=== PATIENT | female | born 1985 | race Caucasian/White ===

== ENCOUNTER → 2018-12-20 19:42 | Outpatient (CLI) | payer OTHER, SELFPAY ==
--- NOTE | 2018-12-20 19:48 | DI.MRI.S_ITS ---
PROCEDURE: MR HAND LT WO CON INDICATIONS: PAIN IN THUMB TECHNIQUE: Noncontrast oblique coronal T1 spin echo and T2 fast spin echo with fat saturation, axial and sagittal T2 fast spin echo with fat saturation, through the thumb. COMPARISON: None. FINDINGS: Image quality: Excellent. Bones: The bones are normally aligned, without marrow contusions or fractures. No intra-osseous lesions. First carpometacarpal joint: On sagittal images, the dorsal radial ligament and posterior oblique ligament appear intact. The intermetacarpal ligament between the 1st and 2nd metacarpal bases also appears intact. On the volar aspect, the deep and superficial layers of the anterior oblique ligament appear intact. First metacarpophalangeal joint: The proper and accessory components of the radial collateral ligament appears intact, along with overlying fibers of the abductor pollicis brevis tendon. The proper and accessory components of the ulnar collateral ligaments appeared thickened with heterogeneous T2 hyperintense signal near its distal insertion and first proximal phalangeal base. Overlying fibers of the adductor pollicis muscle are intact. The aponeurosis of the adductor pollicis muscle also appears normal. The volar plate appears intact on sagittal images, situated between the radial and ulnar sesamoids. Thenar muscles: The superficial abductor pollicis longus muscle appears normal, with tendon inserting on the radial base of the first proximal phalanx. The opponens pollicis muscle also appears normal, inserting on the first metacarpal shaft. The flexor pollicis brevis muscle appears normal, with tendon inserting on the radial sesamoid and first proximal phalanx. The oblique and transverse heads of the adductor pollicis muscle appear normal, inserting on the ulnar sesamoid and proximal phalanx as part of the adductor aponeurosis. Flexor pollicis longus tendon: Tendon fibers appear intact, coursing between the thenar eminence muscles and the adductor pollicis muscle, and inserting on the volar base of the distal phalanx. The first annular mercy at the level of the first MCP joint appears intact, intimate with the sesamoids. The second annular mercy at the level of interphalangeal joint also appears intact. The oblique annular mercy between the 1st and 2nd annular pulleys appears intact, with ulnar proximal attachment intimate with the adductor aponeurosis. The variable annular mercy also appears intact between the first annular and oblique annular pulleys. Extensor tendons: The extensor pollicis brevis tendon appears intact, coursing radial to the extensor pollicis longus tendon and inserting on the dorsal base of the proximal phalanx, blending with the dorsal plate of the first MCP joint. The extensor pollicis longus tendon appears intact as it inserts on the dorsal base of the distal phalanx. The sagittal band at the level of the first MCP joint appears intact. The abductor pollicis longus tendon slips appear intact at the radial aspect of the proximal phalanx, proximal to the abductor pollicis brevis tendon insertion. Miscellaneous: No ganglion cysts. IMPRESSION: 1. Finding is consistent with sprain/lobes moderate grade partial-thickness tear involving ulnar collateral ligament of left thumb near its distal insertion. No full-thickness ulnar collateral ligament rupture. 2. Rest of tendons and ligaments of left thumb are intact. No marrow edema. No fracture or dislocation. Dictated by: Justin Guerrero M.D. on 12/21/2018 at 10:21 Approved by: Justin Guerrero M.D. on 12/21/2018 at 10:25
== END ==
PROVIDERS: Visit Provider Registered Nurse Diabetes Educator
DX: M79.645 Pain in left finger(s) (principal)
CPT/HCPCS: 73218

== ENCOUNTER → 2020-09-06 07:59 | Outpatient (CLI) | payer OTHER, SELFPAY ==
[2020-09-06 09:33] LABS: COVID19 -Nasal RAPID Negative (Negative)
== END ==
PROVIDERS: PCP Registered Nurse Diabetes Educator; Visit Provider Obstetrics & Gynecology
DX: Z01.812 Encounter for preprocedural laboratory examination (principal); Z20.822 Contact with and (suspected) exposure to COVID-19
CPT/HCPCS: 87635

== ENCOUNTER 2020-09-06 09:25 | Day surgery (SDC) | payer OTHER, SELFPAY ==
[2020-09-03 08:20] VITALS: BMI 24.5
--- NOTE | 2020-09-06 | PATH_ITS ---
[facility] Accession Number: [id number] . 01 Material submitted: . fallopian tube - BILATERAL FALLOPIAN TUBES . 02 Diagnosis: Bilateral Fallopian Tubes, Bilateral Salpingectomy: Complete cross-sections of fallopian tubes x2; negative for atypia or malignancy. MRV 09/11/2020 0940 Local . 02 Electronically signed: . Fiorella Hawkins MD, Pathologist NPI- [id number] . 01 Gross description: . The specimen is received in formalin labeled bilateral fallopian tubes and consists of two fallopian tubes measuring 6.5 cm in length x 0.7 cm in diameter and the other is fragmented, measuring 2.5 cm in length x 0.6 cm in diameter. The serosa is gomez-pink with fibrinous adhesions with multiple paratubal cysts ranging from 0.3 to 0.5 cm. Sectioning reveals a gomez mucosa and a stellate lumen measuring 0.2 cm in diameter. Train Controller sections are submitted. . A1-A2 - Intact fallopian tube, margin (blue/en face), central cross sections and bisected fimbria. A3 - Smaller fragmented fallopian tube, central cross sections, margin en face/blue, and central cross section. ([id number]) /[facility] 09/07/2020 1706 Local . 02 Pathologist provided ICD-10: Z30.2, Z30.432 . 02 CPT . 544348 Performed at: 01 [facility] [address], [place], [place] [id number] MD Kenny Spain MD Phone: [phone] Performed at: [address] [facility] [address] [place], [place] [id number] Mckee MD Phone: [phone]
[2020-09-06 10:15] VITALS: BP 110/73; PULSE 62; RESP 16; TEMP 37.1; O2SAT 99; BMI 24.5
[2020-09-06] MEDS: LACTATED RINGERS 1,000 ML 100 ML IV (10:41)
--- NOTE | 2020-09-06 11:57 | P.HP_ITS ---
History of Present Illness History of Present Illness Date Patient Seen: 09/06/20 Time Patient Seen: 11:57 Chief complaint: SDC Narrative: Patient is a 34-year-old 3 para [address], who desires permanent sterilization. She is here for a laparoscopic bilateral salpingectomy and removal of Nexplanon. Patient History Medical History Acne Acne vulgaris BCC (basal cell carcinoma of skin) (~2006) Chicken pox Shingles (~2003) Surgical History (Updated 08/01/20 @ 06:39 by Cassy Swan MD) Anesthesia History of section History of skin surgery (~2006) [place] teeth extracted Family & Social History Family History Father Hyperlipidemia Melanoma Sister Melanoma OCD (obsessive compulsive disorder) Sister Cancer Hyperlipidemia Post depression Grandmother Diabetes mellitus Stroke Low blood pressure Kidney failure Social History: household members spouse,children Tobacco & Substance use: Smoking Status Never smoker alcohol intake never Substance Use Type does not use Meds Home Medications and Allergies Home Medications Medication Instructions Recorded Confirmed Type isotretinoin [Amnesteem] 60 mg PO DAILY 09/06/20 09/06/20 History Allergies Allergy/AdvReac Type Severity Reaction Status Date / Time bacitracin Allergy Severe odd itchy Verified 09/06/20 10:09 [From Neosporin bumps ([id number])] neomycin Allergy Severe odd itchy Verified 09/06/20 10:09 [From Neosporin bumps ([id number])] polymyxin B Allergy Severe odd itchy Verified 09/06/20 10:09 [From Neosporin bumps ([id number])] medica adhesives Allergy Severe blisters Uncoded 07/31/20 16:02 Exam Vital Signs (past 8 hours): - 09/06/20 10:15 Temperature 98.7 F Pulse Rate 62 Respiratory Rate 16 Blood Pressure 110/73 Pulse Oximetry 99 Oxygen Delivery Method Room Air Narrative Exam Narrative: HEENT: No thyromegaly, no anterior cervical or supraclavicular lymphadenopathy. Lungs:Clear to auscultation bilaterally, no wheezes. Cardiovascular: Regular rate and rhythm, no murmurs, rubs, or gallops. Left upper extremity. Nexplanon palpable on the underside of the upper arm. Abdomen: Well-healed Pfannenstiel scars. No hepatosplenomegaly. No masses palpable. External genitalia: Normal Vagina: Normal Cervix: Normal Bimanual exam: 6 Week size anteverted uterus. Mobile. Assessment & Plan Assessment & Plan narrative: Assessment: 34-year-old 3 para 3 desires permanent sterilization Nexplanon in place Plan: Laparoscopic bilateral salpingectomy Nexplanon removal The risks, benefits, and alternatives to the procedure were explained to the patient. The risks including bleeding, infection, injury to the bowel, bladder, or ureters. She understands these risks and agrees to proceed. A full par Q was held and consent form was signed. COVID-19 COVID-19 status: Negative Result date/Date tested (Pos, Neg/Pending): 09/06/20 Time Spent With Patient Time with patient: less than 15 minutes
--- NOTE | 2020-09-06 11:57 | PM.GYNOP.1 ---
Operative Date/Time/Diagnoses Date of procedure: 09/06/20 Time of procedure: 13:33 Pre-op diagnosis: Desires permanent sterilization Nexplanon in place Post-op diagnosis: same Procedure & Clinicians Procedure: Procedures Operation Date: 09/06/20 11:15 <No data on this case meets the specified criteria> Indications: Desires permanent sterilization Nexplanon in place Surgeon: Cassy Swan Anesthesia Type: General and Local Operative Notes Findings: 6 week size adhesed uterus Anterior abdominal wall to uterine adhesions Bladder to uterine adhesions Normal tubes and ovaries Normal appendix Normal liver gallbladder Closure Type: primary Specimen(s): left tube and right tube Estimated blood loss (mL): 15 Blood products transfused: none Procedure in detail: After informed consent was obtained, the patient was taken to the operating room where she was placed in the dorsal supine position. After adequate general endotracheal anesthesia was achieved, she was placed in the dorsal lithotomy position, and prepped and draped in the usual sterile fashion. A time-out was performed. A bivalve speculum was placed into the vagina and the anterior lip of the cervix grasped with a single-tooth tenaculum. Cervical os was sequentially dilated until the Zumi uterine manipulator could pass easily into the endometrial cavity. Single-tooth tenaculum was removed from the anterior lip of the cervix. The bivalve speculum was removed from the vagina. Attention was turned to the abdomen where 6 cc of 0.25% Marcaine was injected. A 5 mm incision was made. The Veress needle was placed into the peritoneal cavity, and its placement confirmed by aspiration and drop test. The abdominal cavity was insufflated with 3.8 L of CO2. Veress needle was removed, and a 5 mm trocar was placed without difficulty. Initial inspection showed a small amount of clot in the pelvis. Two other incisions were made 4 cm lateral to the midline after 6 cc of 0.25% Marcaine were injected. 5 mm trocars were placed under direct visualization. There was found to be a small amount of clot in the pelvis. Suction irrigation was performed. There was no bleeding noted. The right tube was grasped with an atraumatic grasper. Using the PlasmaKinetic was settings at 40 w, the mesosalpinx was cauterized and cut all the way to the cornua of the uterus. The tube was amputated at the cornua. Hemostasis was achieved. This was repeated on the patient's left tube. Hemostasis was achieved. Inspection of the abdomen found a small amount of old clot over the omentum. This area was observed for any signs of bleeding or injury. There was no active bleeding noted. The instruments were removed from the abdomen. The CO2 was allowed to escape. The incisions were repaired with 4-0 Biosyn in a subcuticular fashion. Special dressings were placed due to the patient's reaction to adhesive. On the underside of the patient's left arm, the area was cleaned with ChloraPrep. The Nexplanon was palpated. 4 cc of 0.25% Marcaine were injected along the length of the Nexplanon. A 3 mm incision was made. The Nexplanon was grasped with a curved hemostat and removed without difficulty. Pressure was held for hemostasis. A simple interrupted suture was placed with 4 0 Biosyn. Dermabond was placed. An Allevyn dressing was placed. The Zumi uterine manipulator was removed from the uterus. Sponge, lap, and instrument counts were correct x2. The patient tolerated the procedure well, and was taken to PACU in stable condition. Complications: none Post-operative Condition: stable Disposition: PACU Plan for aftercare: Home after recovery
--- NOTE | 2020-09-06 12:00 | PM.PREOP ---
Pre-operative Note COVID-19 COVID-19 status: Negative Result date/Date tested (Pos, Neg/Pending): 09/06/20 Interval Note History & Physical reviewed/Exam performed by Physician: Yes Changes to H&P: No H&P completed within 30 days and has changed as indicated here:: 09/06/20
--- NOTE | 2020-09-06 12:41 | SUR.OPER ---
Lithotomy on padded OR bed, head on pillow, arms secured on padded arm boards at <90 degrees abduction. Legs secured in padded yellow fins stirrups.
[2020-09-06] MEDS: BUPIVACAINE 0.5% (PF) VIAL 30 ML INJ (12:46)
[2020-09-06 13:42] VITALS: BP 84/41; PULSE 60; RESP 14; TEMP 36.6; O2SAT 100
[2020-09-06 13:47] VITALS: BP 106/68; PULSE 53; RESP 16; O2SAT 100
[2020-09-06 13:51] VITALS: BP 98/59; PULSE 59; RESP 16; O2SAT 100
[2020-09-06] MEDS: OXYCODONE/ACETAMINOPHEN 5/325 TABLET 1 TAB PO (13:56)
[2020-09-06 14:04] VITALS: BP 104/66; PULSE 47; RESP 14; TEMP 36.4; O2SAT 100
== END 2020-09-06 14:30 | disposition home or self-care (01) ==
PROVIDERS: PCP Registered Nurse Diabetes Educator; Referring Provider Obstetrics & Gynecology; Visit Provider Obstetrics & Gynecology
PROC: (CPT 58661; principal; 2020-09-06 11:15)
DX: Z30.2 Encounter for sterilization (principal); Z30.432 Encounter for removal of intrauterine contraceptive device; N73.6 Female pelvic peritoneal adhesions (postinfective); Z20.822 Contact with and (suspected) exposure to COVID-19; Z01.812 Encounter for preprocedural laboratory examination
CPT/HCPCS: 58661; 11982; 81025; 87635; J0330; J1100; J2250; J2405; J3010